=== PATIENT | male | born 1965 | race Asian ===

== ENCOUNTER 2023-11-29 11:27 | Emergency (ER) | payer OTHER ==
[2023-11-29 11:35] VITALS: RESP 18
[2023-11-29] MEDS: KETOROLAC 15 MG/ML 1 ML VIAL IVP STA (12:00)
[2023-11-29] MEDS: HYDROmorphone 0.5 MG/0.5 ML SYRINGE IVP STA (12:01)
[2023-11-29 12:06] LABS: Basophils % (A) 0 %; Eosinophils # (A) 0.2 k/uL (0-0.7); Eosinophils % (A) 2 %; HCT 41.4 % (39.0-53.0); HGB 13.3 gm/dL (13.0-17.5); Lymphocytes # (A) 1.2 k/uL (1.0-4.8); Lymphocytes % (A) 10 %; MCH 28.1 pg (25.0-35.0); MCHC 32.1 g/dL (31.0-37.0); MCV 87.6 fL (80.0-100.0); Mean Platelet Volume 6.5; Monocytes # (A) 0.7 k/uL (0-1.0); Monocytes % (A) 5 %; Neutrophils # (A) 10.3 k/uL (1.3-7.7); Neutrophils % (A) 82 %; Platelet Count 318 k/uL (150-450); RBC 4.72 m/uL (4.30-5.90); RDW 13.2 % (11.5-15.5); WBC 12.6 k/uL (3.8-10.6)
[2023-11-29 12:25] LABS: ALT 18 U/L (4-49); AST 22 U/L (17-59); African American GFR (CKD) >90 (>60 ml/min/1.73 sqM); Albumin 4.1 g/dL (3.5-5.0); Alkaline Phosphatase 118 U/L (38-126); Anion Gap 10 mmol/L; Blood Urea Nitrogen 22 mg/dL (9-20); Calcium 9.4 mg/dL (8.4-10.2); Carbon Dioxide 24 mmol/L (22-30); Chloride 105 mmol/L (98-107); Glucose 129 mg/dL (74-99); Non-African American GFR(CKD) >90 (>60 ml/min/1.73 sqM); Sodium 139 mmol/L (137-145); Total Bilirubin 0.5 mg/dL (0.2-1.3); Total Protein 7.4 g/dL (6.3-8.2); Uric Acid 5.9 mg/dL (3.5-8.5)
[2023-11-29 12:36] LABS: C Reactive Protein 15.6 mg/dL (<1.0)
--- NOTE | 2023-11-29 12:41 | XR ---
EXAMINATION TYPE: XR knee complete RT DATE OF EXAM: 11/29/2023 COMPARISON: NONE HISTORY: Pain TECHNIQUE: Three views are submitted. FINDINGS: Mild tricompartment joint space arthropathy with marginal spurring. Small suprapatellar bursal fluid collection. Mild generalized demineralization. Osseous structures are intact. No acute fracture see n. IMPRESSION: 1. No acute fracture or dislocation. 2. Mild osteoarthritis with small suprapatellar bursal fluid collection.
--- NOTE | 2023-11-29 12:52 | ED ---
Lower Extremity Injury HPI - General Chief Complaint: Extremity Injury, Lower Stated Complaint: R Knee Pain Time Seen by Provider: 11/29/23 11:30 Source: patient, family, EMS, RN notes reviewed Mode of arrival: EMS Limitations: language barrier - History of Present Illness Initial Comments: 58-year-old male presents emergency department complaint of right knee pain. This been on and off issue but states pain worsens started unable to move severe pain behind his knee in the front of his knee. He denies falling on it. Patient states that has been told he has some arthritis. Patient denies any paresthesias. Denies any trauma this time. Denies any redness, night sweats or weight loss. Patient states he is unable to weight-bear on it secondary to pain. - Related Data Home Medications Medication Instructions Recorded Confirmed Acetaminophen [Tylenol Extra 1,000 mg PO Q6H PRN 11/29/23 11/29/23 Strength] Allergies Allergy/AdvReac Type Severity Reaction Status Date / Time No Known Allergies Allergy Verified 11/29/23 13:00 Review of Systems ROS Statement: Those systems with pertinent positive or pertinent negative responses have been documented in the HPI. ROS Other: All systems not noted in ROS Statement are negative. Past Medical History Past Medical History: No Reported History History of Any Multi-Drug Resistant Organisms: None Reported Past Surgical History: No Surgical Hx Reported Past Psychological History: No Psychological Hx Reported General Exam Limitations: language barrier General appearance: alert, in no apparent distress Head exam: Present: atraumatic, normocephalic, normal inspection Eye exam: Present: normal appearance, PERRL, EOMI. Absent: scleral icterus, conjunctival injection, periorbital swelling ENT exam: Present: normal exam, normal oropharynx, mucous membranes moist Neck exam: Present: normal inspection, full ROM. Absent: tenderness, meningismus, lymphadenopathy Respiratory exam: Present: normal lung sounds bilaterally. Absent: respiratory distress, wheezes, rales, rhonchi, stridor Cardiovascular Exam: Present: regular rate, normal rhythm, normal heart sounds. Absent: systolic murmur, diastolic murmur, rubs, gallop, clicks Extremities exam: Present: other (Right knee there is diffuse swelling no erythema no increased warmth there is pulses equal bilaterally lower extremities patient has limited range of motion secondary to pain and severe tenderness with palpation) Course Vital Signs 11/29/23 11/29/23 11:31 13:08 Temperature 98.3 F Pulse Rate 80 90 Respiratory 18 18 Rate Blood Pressure 138/82 129/70 O2 Sat by Pulse 100 100 Oximetry Medical Decision Making - Medical Decision Making Was pt. sent in by a medical professional or institution ([facility], [facility], urgent c are, hospital, or fci...) When possible be specific @ -No Did you speak to anyone other than the patient for history (EMS, parent, family, police, friend...)? What history was obtained from this source @ -No Did you review nursing and triage notes (agree or disagree)? Why? @ -I reviewed and agree with nursing and triage notes Were old charts reviewed (outside hosp., previous admission, EMS record, old EKG, old radiological studies, urgent care reports/EKG's, fci records)? Report findings @ -No old charts were reviewed Differential Diagnosis (chest pain, altered mental status, abdominal pain women, abdominal pain men, vaginal bleeding, weakness, fever, dyspnea, syncope, h eadache, dizziness, GI bleed, back pain, seizure, CVA, palpatations, mental health, musculoskeletal)? @ -Knee pain, knee sprain, joint effusion, septic arthritis, joint infection EKG interpreted by me (3pts min.). @ -As above X-rays interpreted by me (1pt min.). @ -X-ray shows joint effusion no a acute fracture or abnormality noted CT interpreted by me (1pt min.). @ -None done U/S interpreted by me (1pt. min.). @ -Ultrasound venous Doppler shows no evidence of DVT What testing was considered but not performed or refused? (CT, X-rays, U/S, labs)? Why? @ -None What meds were considered but not given or refused? Why? @ -None Did you discuss the management of the patient with other professionals (professionals i.e. [facility], [facility], lab, RT, psych nurse, social work faculty member, contractor buyer, teacher, asset protection officer, classification case manager)? Give summary @ -No Was smoking cessation discussed for >3mins.? @ -No Was critical care preformed (if so, how long)? @ -No Were there social determinants of health that impacted care today? How? (Homelessness, low income, unemployed, alcoholism, drug addiction, transportation, low edu. Level, literacy, decrease access to med. care, fdc, rehab)? @ -No Was there de-escalation of care discussed even if they declined (Discuss DNR or withdrawal of care, Hospice)? DNR status @ -No What co-morbidities impacted this encounter? (DM, HTN, Smoking, COPD, CAD, Cancer, CVA, ARF, Chemo, Hep., AIDS, mental health diagnosis, sleep apnea, morbid obesity)? @ -None Was patient admitted / discharged? Hospital course, mention meds given and route, prescriptions, significant lab abnormalities, going to OR and other pertinent info. @ -Discharge patient has large joint effusion there is no erythema or warmth with palpation no leukocytosis or fever to suggest septic joint. This has been a recurrent issue per patient and family patient may have underlying meniscus injury will follow-up with orthopedics return parens discussed. Undiagnosed new problem with uncertain prognosis? @ -No Drug Therapy requiring intensive monitoring for toxicity (Heparin, Nitro, Insulin, Cardizem)? @ -No Were any procedures done? @ -No Diagnosis/symptom? @ -Right knee and, joint effusion Acute, or Chronic, or Acute on Chronic? @ -Acute Uncomplicated (without systemic symptoms) or Complicated (systemic symptoms)? @ -Uncomplicated Side effects of treatment? @ -No Exacerbation, Progression, or Severe Exacerbation? @ -No Poses a threat to life or bodily function? How? (Chest pain, USA, NH, pneumonia, PE, COPD, DKA, ARF, appy, cholecystitis, CVA, Diverticulitis, Homicidal, Suicidal, threat to staff... and all critical care pts) @ -No - Lab Data Result diagrams: 11/29/23 11:55 11/29/23 11:55 Lab Results 11/29/23 11/29/23 Range/Units 11:55 11:55 WBC 12.6 H (3.8-10.6) k/uL RBC 4.72 (4.30-5.90) m/uL Hgb 13.3 (13.0-17.5) gm/dL Hct 41.4 (39.0-53.0) % MCV 87.6 (80.0-100.0) fL MCH 28.1 (25.0-35.0) pg MCHC 32.1 (31.0-37.0) g/dL RDW 13.2 (11.5-15.5) % Plt Count 318 (150-450) k/uL MPV 6.5 Neutrophils % 82 % Lymphocytes % 10 % Monocytes % 5 % Eosinophils % 2 % Basophils % 0 % Neutrophils # 10.3 H (1.3-7.7) k/uL Lymphocytes # 1.2 (1.0-4.8) k/uL Monocytes # 0.7 (0-1.0) k/uL Eosinophils # 0.2 (0-0.7) k/uL Basophils # 0.0 (0-0.2) k/uL Sodium 139 (137-145) mmol/L Potassium 4.0 (3.5-5.1) mmol/L Chloride 105 (98-107) mmol/L Carbon Dioxide 24 (22-30) mmol/L Anion Gap 10 mmol/L BUN 22 H (9-20) mg/dL Creatinine 0.85 (0.66-1.25) mg/dL Est GFR (CKD-EPI)AfAm >90 (>60 ml/min/1.73 sqM) Est GFR (CKD-EPI)NonAf >90 (>60 ml/min/1.73 sqM) Glucose 129 H (74-99) mg/dL Uric Acid 5.9 (3.5-8.5) mg/dL Calcium 9.4 (8.4-10.2) mg/dL Total Bilirubin 0.5 (0.2-1.3) mg/dL AST 22 (17-59) U/L ALT 18 (4-49) U/L Alkaline Phosphatase 118 (38-126) U/L C-Reactive Protein 15.6 H (<1.0) mg/dL Total Protein 7.4 (6.3-8.2) g/dL Albumin 4.1 (3.5-5.0) g/dL Disposition Clinical Impression: Right knee pain, Effusion, right knee Disposition: HOME SELF-CARE Condition: Stable Instructions (If sedation given, give patient instructions): Knee Pain (ED), Swollen Knee Joint (ED) Additional Instructions: Please return to the Emergency Department if symptoms worsen or any other concerns. Is patient prescribed a controlled substance at d/c from ED?: No Referrals: Riky Levy MD [Primary Care Provider] - 1-2 days Lurdes Montoya DO [Doctor of Osteopathic Medicine] - 1-2 days Time of Disposition: 14:12
[2023-11-29 13:09] VITALS: PULSE 90
--- NOTE | 2023-11-29 13:27 | US ---
EXAMINATION TYPE: US venous doppler duplex LE RT DATE OF EXAM: 11/29/2023 11:45 AM COMPARISON: NONE CLINICAL INDICATION: Male, 58 years old with history of pain; Right knee pain. No swelling. SIDE PERFORMED: Right TECHNIQUE: The lower extremity deep venous system is examined utilizing real time linear array sonog zac with graded compression, doppler sonography and color-flow sonography. VESSELS IMAGED: Common Femoral Vein Deep Femoral Vein Greater Saphenous Vein * Femoral Vein Popliteal Vein Small Saphenous Vein * Proximal Calf Veins (* superficial vessels) Right Leg: Negative for DVT IMPRESSION: Grayscale, color doppler, spectral doppler imaging performed of the deep veins of the lo wer extremities. There is normal flow, compressibility, vascular waveforms.
[2023-11-29] MEDS: ACET/COD 300 MG/30 MG STARTER PACK 6 TAB BTL PO STA (14:20)
[2023-11-29 14:23] VITALS: BP 113/74; TEMP 97.9
[2023-11-29 15:09] LABS: Erythrocyte Sedimentation Rate 95 mm/Hr (0-20)
== END 2023-11-29 14:25 | disposition home or self-care (01) ==
LOC: EC 11:27
DX: M25.461 Effusion, right knee (principal)
CPT/HCPCS: 36415; 80053; 85652; 84550; 85025; 86140; 73562; 93971; 99284; 96374; 96375; J1885; J1170